=== PATIENT | female | born 1990 | race African-American/Black ===

== ENCOUNTER 2020-03-14 12:37 | Emergency (ER) | payer OTHER ==
[~2020-03-14] VITALS: Ht 172.7 cm; Wt 57.6 kg
[2020-03-14 12:50] LABS: URINE BILIRUBIN NEGATIVE (Negative); URINE BLOOD NEGATIVE (Negative); URINE CLARITY CLEAR; URINE COLOR YELLOW; URINE GLUCOSE-RANDOM* NEGATIVE (Negative); URINE KETONES NEGATIVE (Negative); URINE LEUKOCYTES-REFLEX NEGATIVE (Negative); URINE NITRITE-REFLEX NEGATIVE (Negative); URINE PROTEIN (DIPSTICK) NEGATIVE (Negative); URINE UROBILINOGEN 0.2 E.U./dl (0.2-1.0)
[2020-03-14] MEDS ORDERED: LEVONO-E ESTRA1 EACH PO (13:12)
[2020-03-14 13:14] LABS: ABSOLUTE NEUTROPHILS 6.2 thou/uL (1.4-8.2); BASOPHILS 0.4 % (0.0-2.0); EOSINOPHILS 1.7 % (0.0-3.0); HEMATOCRIT 36.4 % (37.0-47.0); HEMOGLOBIN 12.4 gm/dL (12.0-15.0); LYMPHOCYTES 24.7 % (24.0-44.0); MCH 33.3 pg (26.0-34.0); MCHC 34.2 g/dL (28.0-37.0); MCV 97.5 fL (80.0-100.0); MONOCYTES 5.1 % (1.0-8.0); PLATELET COUNT 363 thou/uL (150-400); POLYS 68.1 % (36.0-66.0); RBC 3.73 mil/uL (4.20-5.00); RDW 13.4 % (10.5-14.5); WBC 9.1 thou/uL (4.0-11.0)
[2020-03-14] MEDS ORDERED: ULTRAM50 MG PO (15:31)
[2020-03-14] MEDS ORDERED: MOBIC7.5 MG PO (15:31)
[2020-03-14 16:08] LABS: CALCIUM 9.3 mg/dL (8.5-10.1)
[2020-03-14 16:29] VITALS: BP 106/57
== END 2020-03-14 16:30 | disposition home or self-care (01) ==
LOC: ER 12:37
PROVIDERS: Nurse Practitioner Family
DX: D25.9 Leiomyoma of uterus, unspecified (principal); N83.201 Unspecified ovarian cyst, right side; R30.9 Painful micturition, unspecified; Z79.899 Other long term (current) drug therapy; Z90.721 Acquired absence of ovaries, unilateral